=== PATIENT | female | born 1950 | race African-American/Black ===

== ENCOUNTER 2020-08-21 09:04 | Inpatient (IN) ==
[2020-08-21 09:48] LABS: Basophils # 0.1 10*3/uL (0.0-0.2); Basophils % 0.6 % (0.0-0.8); Eosinophils # 0.2 10*3/uL (0.0-0.87); Eosinophils % 1.8 % (0.00-10.9); Hematocrit 38.5 VOL% (35.7-47.0); Hemoglobin 12.8 GM/DL (12.0-16.0); Immature Granulocytes % 0.9 %; Immature Granulocytes Absolute 0.08 #; Lymphocytes # 2.1 10*3/uL (1.4-4.0); Lymphocytes % 24.2 % (21.3-54.2); Mean Corpuscular HGB Conc 33.2 GM/DL (32-36); Mean Corpuscular Volume 79.4 FL (87-102); Mean Platelet Volume 10.7 FL (9.6-12.0); NRBC # 0.03 10*3/uL; Neutrophils % 61.5 % (38.7-73.9); Platelet Count 156 T/CUMM (130-400); Red Blood Count 4.85 MC/CUMM (3.8-5.5); Red Cell Distribution Width 15.7 % (9.3-17.3); White Blood Count 8.9 T/CUMM (4-12)
[2020-08-21 09:59] LABS: PT Patient Result 11.2 SECS (9.8-11.9); Partial Thromboplastin Time 21.4 SECS (23.9-33.8)
[2020-08-21 10:06] LABS: Albumin 3.1 G/DL (3.4-5.0); Bilirubin,Total 0.7 MG/DL (0.2-1.0); Calcium 8.6 MG/DL (8.5-10.1); Potassium 3.8 MMOL/L (3.5-5.1); Total Protein 7.9 G/DL (6.4-8.3)
[2020-08-21] MEDS ORDERED: LABETALOL 20 MG/4 ML SYRINGE IV PRN (10:29)
[2020-08-21 11:04] LABS: Risk Ratio 3.49; VLDL CHOLESTEROL 24.6 MG/DL
[2020-08-21] MEDS: ENOXAPARIN 40 MG/0.4 ML SYRINGE SUBCUT SCH (11:15)
[2020-08-21] MEDS: ASPIRIN 325 MG TABLET PO SCH (11:17)
[2020-08-21] MEDS: ATORVASTATIN 40 MG TABLET PO SCH (22:01)
[2020-08-22 03:35] LABS: Basophils % 0.5 % (0.0-0.8); Eosinophils # 0.2 10*3/uL (0.0-0.87); Hematocrit 34.2 VOL% (35.7-47.0); Hemoglobin 11.3 GM/DL (12.0-16.0); Immature Granulocytes % 0.8 %; Immature Granulocytes Absolute 0.07 #; Lymphocytes # 1.5 10*3/uL (1.4-4.0); Lymphocytes % 17.2 % (21.3-54.2); Mean Corpuscular Volume 79.5 FL (87-102); Mean Platelet Volume 9.6 FL (9.6-12.0); Monocytes % 12.7 % (1.7-12.7); NRBC # 0.03 10*3/uL; Neutrophils % 66.8 % (38.7-73.9); Platelet Count 251 T/CUMM (130-400); Red Cell Distribution Width 15.7 % (9.3-17.3); White Blood Count 8.6 T/CUMM (4-12)
[2020-08-22 03:50] LABS: Calcium 8.2 MG/DL (8.5-10.1); Potassium 3.3 MMOL/L (3.5-5.1)
[2020-08-22] MEDS: ASPIRIN 325 MG TABLET PO SCH (09:08)
[2020-08-22] MEDS ORDERED: POTASSIUM CHLORIDE RIDER 10 MEQ in PREMIX 1 EACH IV PRN (09:39)
[2020-08-22] MEDS: ENOXAPARIN 40 MG/0.4 ML SYRINGE SUBCUT SCH (11:31)
[2020-08-22] MEDS: PANTOPRAZOLE 40 MG TABLET PO SCH (16:43)
[2020-08-22] MEDS ORDERED: APIXABAN 5 MG TABLET PO SCH (21:00)
[2020-08-22] MEDS: ATORVASTATIN 40 MG TABLET PO SCH (21:28)
[2020-08-23 06:31] LABS: Basophils % 0.4 % (0.0-0.8); Eosinophils # 0.2 10*3/uL (0.0-0.87); Eosinophils % 2.2 % (0.00-10.9); Hematocrit 35.5 VOL% (35.7-47.0); Hemoglobin 11.5 GM/DL (12.0-16.0); Immature Granulocytes % 0.5 %; Immature Granulocytes Absolute 0.04 #; Lymphocytes # 1.5 10*3/uL (1.4-4.0); Lymphocytes % 19.8 % (21.3-54.2); Mean Corpuscular HGB Conc 32.4 GM/DL (32-36); Mean Corpuscular Volume 79.8 FL (87-102); Mean Platelet Volume 9.5 FL (9.6-12.0); Monocytes % 12.4 % (1.7-12.7); NRBC # 0.03 10*3/uL; Neutrophils % 64.7 % (38.7-73.9); Platelet Count 271 T/CUMM (130-400); Red Blood Count 4.45 MC/CUMM (3.8-5.5); Red Cell Distribution Width 15.9 % (9.3-17.3); White Blood Count 7.4 T/CUMM (4-12)
[2020-08-23 06:51] LABS: Calcium 8.6 MG/DL (8.5-10.1); Osmolality,Calculated 287.7 MOS/KG (273-304); Potassium 3.3 MMOL/L (3.5-5.1)
[2020-08-23] MEDS: ASPIRIN 325 MG TABLET PO SCH (08:51)
[2020-08-23] MEDS: PANTOPRAZOLE 40 MG TABLET PO SCH (08:51)
[2020-08-23] MEDS ORDERED: POTASSIUM CHLORIDE 20 MEQ TABLET PO ONE (11:18)
[2020-08-23] MEDS: APIXABAN 5 MG TABLET PO SCH ×2 (13:07→20:10)
[2020-08-23] MEDS: ATORVASTATIN 40 MG TABLET PO SCH (20:11)
[2020-08-24 05:38] LABS: Basophils % 0.5 % (0.0-0.8); Eosinophils # 0.4 10*3/uL (0.0-0.87); Hematocrit 36.2 VOL% (35.7-47.0); Hemoglobin 11.2 GM/DL (12.0-16.0); Immature Granulocytes % 0.6 %; Immature Granulocytes Absolute 0.05 #; Lymphocytes # 1.8 10*3/uL (1.4-4.0); Mean Corpuscular HGB Conc 30.9 GM/DL (32-36); Mean Corpuscular Volume 82.8 FL (87-102); Mean Platelet Volume 9.6 FL (9.6-12.0); Monocytes % 11.3 % (1.7-12.7); Neutrophils % 59.6 % (38.7-73.9); Platelet Count 293 T/CUMM (130-400); Red Blood Count 4.37 MC/CUMM (3.8-5.5); Red Cell Distribution Width 15.9 % (9.3-17.3)
[2020-08-24 06:06] LABS: Calcium 8.5 MG/DL (8.5-10.1); Osmolality,Calculated 287.6 MOS/KG (273-304); Potassium 3.6 MMOL/L (3.5-5.1)
[2020-08-24] MEDS: APIXABAN 5 MG TABLET PO SCH ×2 (09:10→22:23)
[2020-08-24] MEDS: PANTOPRAZOLE 40 MG TABLET PO SCH (09:10)
[2020-08-24] MEDS: ASPIRIN 325 MG TABLET PO SCH (09:10)
[2020-08-24] MEDS: LACTULOSE 20 GM/30 ML UDCUP PO SCH ×2 (11:31→14:51)
[2020-08-24] MEDS: ATORVASTATIN 40 MG TABLET PO SCH (22:23)
[2020-08-25] MEDS: LACTULOSE 20 GM/30 ML UDCUP PO SCH ×3 (00:38→14:39)
[2020-08-25 05:39] LABS: Basophils % 0.4 % (0.0-0.8); Eosinophils # 0.4 10*3/uL (0.0-0.87); Eosinophils % 4.9 % (0.00-10.9); Hematocrit 35.8 VOL% (35.7-47.0); Hemoglobin 11.4 GM/DL (12.0-16.0); Immature Granulocytes % 0.6 %; Immature Granulocytes Absolute 0.05 #; Lymphocytes # 1.8 10*3/uL (1.4-4.0); Lymphocytes % 20.9 % (21.3-54.2); Mean Corpuscular HGB Conc 31.8 GM/DL (32-36); Mean Corpuscular Volume 82.1 FL (87-102); Mean Platelet Volume 9.2 FL (9.6-12.0); Monocytes % 9.4 % (1.7-12.7); Neutrophils % 63.8 % (38.7-73.9); Platelet Count 286 T/CUMM (130-400); Red Blood Count 4.36 MC/CUMM (3.8-5.5); Red Cell Distribution Width 15.6 % (9.3-17.3); White Blood Count 8.5 T/CUMM (4-12)
[2020-08-25 06:03] LABS: Calcium 8.6 MG/DL (8.5-10.1); Osmolality,Calculated 285.7 MOS/KG (273-304); Potassium 3.5 MMOL/L (3.5-5.1)
[2020-08-25] MEDS ORDERED: LIDOCAINE 2% 5 ML VIAL ONE (07:35)
[2020-08-25] MEDS ORDERED: propofoL 200 MG/20 ML VIAL IV ONE (07:35)
[2020-08-25] MEDS: APIXABAN 5 MG TABLET PO SCH (09:49)
[2020-08-25] MEDS: ASPIRIN 325 MG TABLET PO SCH (09:49)
[2020-08-25] MEDS: PANTOPRAZOLE 40 MG TABLET PO SCH (09:50)
[2020-08-25 12:27] VITALS: BP 126/76
== END 2020-08-25 16:22 | DRG 64 ==
LOC: EDUNIT# → EDBD → N.ED 09:04 → N.EDINP 10:29 → N.TELES 12:38
PROVIDERS: ADMIT Internal Medicine; ATTEND Internal Medicine